=== PATIENT | female | born 1955 | race Asian ===

== ENCOUNTER 2019-02-06 11:04 | Day surgery (SDC) | payer OTHER ==
[2019-01-25 11:01] VITALS: BMI 20.9
--- NOTE | 2019-02-02 08:49 | HP ---
Admitting History and Physical - Primary Care Physician PCP: Darryl Kincaid - Admission Chief Complaint: Right breast cancer History of Present Illness: Patient is a 64 yo female with h/o left breast LCIS (2004), who was noted to have right breast calcifications in the UOQ posteriorly on screening mammo (2018). Patient underwent a stereotactic core bx on 10/24/2018 which was c/w DCIS ER positive HI negative. MRI was c/w known breast cancer. Patient is now presenting for a right breast WE with localization via KEELEY SUSTAINABLE PRODUCTS MARKETING MANAGER. History Source: Patient Limitations to Obtaining History: No Limitations - Past Medical History Cardiovascular: Yes: Hyperlipdemia ...: No Endocrine: Yes: Diabetes Mellitus (borderline) - Advance Directives Advance Directives: Yes: Health Care Proxy - Smoking History Smoking history: Never smoked Have you smoked in the past 12 months: No - Alcohol/Substance Use Hx Alcohol Use: Yes (SOCIALLY) Home Medications - Allergies Allergies/Adverse Reactions: Allergies Allergy/AdvReac Type Severity Reaction Status Date / Time neomycin Allergy Intermediate Rash Verified 01/25/19 10:43 - Home Medications Home Medications: Ambulatory Orders Rosuvastatin Calcium [Crestor] 5 mg PO DAILY 01/25/19 Family Disease History - Family Disease History Family Disease History: CA: Father (prostate cancer), Mother (pancreatic cancer at 84) Other Family History: mat cousin-breast cancer. pat 2nd cousin-colon cancer. mat uncle-esophageal cancer Review of Systems - Review of Systems Constitutional: reports: No Symptoms Cardiovascular: reports: No Symptoms Respiratory: reports: No Symptoms Physical Examination Constitutional: Yes: Well Nourished, Calm Breast(s): Yes: Other (B-cup breasts without suspicious skin changes. No suspicious palpable adenopathy or masses noted bilaterally.) Problem List - Problems (1) Ductal carcinoma in situ (DCIS) of right breast Code(s): D05.11 - INTRADUCTAL CARCINOMA IN SITU OF RIGHT BREAST Assessment/Plan Plan: Right breast WE with KEELEY Finish Inspector localization possible needle localization.
[2019-02-06] MEDS ORDERED: PROPOFOL 20 ML ONE (13:31)
[2019-02-06] MEDS ORDERED: MIDAZOLAM HCL 2 MG/2 ML SINGLE DOSE VIAL ONE (13:32)
[2019-02-06] MEDS ORDERED: LIDOCAINE HCL/PF 2% SDV 5ML VIAL ONE (13:33)
[2019-02-06] MEDS ORDERED: SODIUM CHLORIDE 0.9% P/F 10 ML VIAL IJ ONE (13:34)
[2019-02-06] MEDS ORDERED: ceFAZolin SODIUM 1 GM VIAL ONE (13:34)
[2019-02-06] MEDS ORDERED: DEXAMETHASONE SOD PHOSPHATE 4 MG/1 ML VIAL ONE (13:57)
[2019-02-06] MEDS ORDERED: ONDANSETRON 4 MG/2 ML VIAL ONE (13:57)
[2019-02-06] MEDS ORDERED: BUPIVACAINE HCL 0.25% 125 MG/50 ML VIAL ONE (14:23)
[2019-02-06] MEDS ORDERED: KETOROLAC TROMETHAMINE 30 MG/1 ML VIAL ONE (14:41)
[2019-02-06] MEDS ORDERED: GUM MASTIC/STORAX/MSAL/ALCOHOL 1 DRP DROPSBTL MC ONE (15:08)
[2019-02-06] MEDS ORDERED: PROMETHAZINE HCL 25 MG/1 ML VIAL IVPUSH PRN (15:30)
[2019-02-06] MEDS ORDERED: LACTATED RINGERS SOLUTION 1,000 ML IV SCH (15:30)
[2019-02-06] MEDS ORDERED: ONDANSETRON 4 MG/2 ML VIAL IVPUSH PRN ×2 (15:30→15:33)
[2019-02-06] MEDS ORDERED: KETOROLAC TROMETHAMINE 30 MG/1 ML VIAL IVPUSH ONE ×3 (15:30→16:00)
[2019-02-06] MEDS ORDERED: KETOROLAC TROMETHAMINE 30 MG/1 ML VIAL IVPUSH PRN (15:33)
[2019-02-06] MEDS ORDERED: DEXTROSE 5%-0.45% SALINE 1,000 ML IV SCH (15:45)
[2019-02-06 15:47] VITALS: TEMP 98.1
--- NOTE | 2019-02-06 21:08 | OP ---
DATE OF OPERATION: 02/06/2019 PREOPERATIVE DIAGNOSIS: Right breast ductal carcinoma in situ, upper outer quadrant. POSTOPERATIVE DIAGNOSIS: Right breast ductal carcinoma in situ, upper outer quadrant. PROCEDURE: Right breast partial mastectomy with KEELEY Software Engineer Sales localization and 5 x 4 cm tissue transfer closure. ANESTHESIA: General laryngeal mask airway anesthesia. PRIMARY SURGEON: Suleman Kincaid MD COORDINATOR VOLUNTEER SERVICES: JAIMEE Silva COMPLICATIONS: There were no complications. Briefly, the patient is a 64-year-old, G4, P2, postmenopausal female with [place] descent. She has a family history with her maternal cousin who had breast cancer in her 50s. Her mother had pancreatic cancer at age 84 and her father had prostate cancer. A maternal uncle had esophageal cancer. The patient had a history of a left breast wide excision in 2004 for LCIS and was found to have some new clustered calcifications in the upper outer aspect of the right breast on screening mammography in July 2018. Stereotactic biopsy showed low to intermediate-grade DCIS which was ER positive and NE negative. MRI showed localized disease. She was seen by an outside surgeon, who performed a KEELEY Software Engineer Sales localization of the cancer in the upper outer aspect of the right breast in plans for excision. The patient decided to have surgery with myself and we scheduled for a wide excision with KEELEY Software Engineer Sales localization for February 06, 2019. She was brought in for the surgery through Ambulatory Surgery on February 06 at the [facility], and in the holding area, site verification was made and informed consent was obtained. She was brought in to the operating room and laid on the OR table in a supine position. Venodynes were placed on the lower extremities. She received 1 g of Ancef prior to incision. She underwent general laryngeal mask airway anesthesia. The right breast was sterilely prepped and draped in the usual fashion. Timeout was performed. We used a KEELEY Software Engineer Sales device to localize the reflector within the upper outer aspect of the breast and marked the site. We then performed a wide excision through a periareolar approach around the upper outer aspect around the left periareolar region. An incision was made. Dissection was undertaken around the reflector. We used a KEELEY Software Engineer Sales device to localize the excision and completely excise that tissue around the upper outer aspect of the right breast all the way down to the pectoralis major muscle. The tissue was completely excised and oriented with a long lateral and short superior suture. KEELEY Software Engineer Sales showed removal of the clip and we also did a specimen x-ray showing removal of the KEELEY Software Engineer Sales device as well as the previously placed titanium clip. Hemostasis was achieved and the specimen was sent to Pathology in formalin. Separate margins were then taken on the superior, inferior, medial, lateral, deep, and anterior margins, with a suture marking the biopsy cavity side. Each of these were sent separately in formalin as wide excision margins. A 5 x 4-cm tissue transfer closure was then accomplished by undermining the breast tissue, reapproximating it using 2-0 plain suture. The skin was closed using interrupted 3-0 deep dermal Vicryl suture and a running 4-0 subcuticular Biosyn suture. Mastisol and Steri-Strips were applied over the wound, a compressive dressing placed over this. The patient tolerated the procedure well without difficulty and placed in a surgical bra, and laryngeal mask airway tube was removed. Estimated blood loss was minimal and all sponge and needle counts were correct at the end of the case. The patient will be discharged home the same day once discharge criteria are met. She is to follow up in the office in 1 week for formal wound pathology check. SULEMAN KINCAID M.D. [id number]
[2019-02-09 16:41] VITALS: BP 120/65; PULSE 66
--- NOTE | 2019-02-12 11:35 | PATH ---
Surgical Pathology Report Patient Name: RUFUS DAVIS [facility]. Rec. #: [id number] /Age/Gender: 1955 (Age: 64) / F Account: [id number] Location: [facility] AMBULATORY Taken: 02/06/2019 Received: 02/06/2019 Reported: 02/12/2019 Physicians: Darryl Kincaid M.D. Specimen(s) Received A: RIGHT BREAST WIDE EXCISION B: RIGHT BREAST ANTERIOR MARGIN C: RIGHT BREAST POSTERIOR MARGIN D: RIGHT BREAST MEDIAL MARGIN E: RIGHT BREAST LATERAL MARGIN F: RIGHT BREAST INFERIOR MARGIN G: RIGHT BREAST SUPERIOR MARGIN Clinical History DCIS Final Diagnosis A. BREAST, RIGHT, WIDE EXCISION: BENIGN BREAST PARENCHYMA WITH CHANGES OF PRIOR BIOPSY INCLUDING CHRONIC INFLAMMATION, HEMOSIDERIN LADEN MACROPHAGES DEPOSITION, AND ASSOCIATED GIANT CELL REACTION. NO CARCINOMA IDENTIFIED. B. BREAST, ANTERIOR, MARGIN, EXCISION: BENIGN BREAST PARENCHYMA WITH CHANGES OF PRIOR PROCEDURE. NO CARCINOMA IDENTIFIED. C. BREAST, POSTERIOR, MARGIN, EXCISION: BENIGN FIBROADIPOSE TISSUE AND SKELETAL MUSCLE. D. BREAST, MEDIAL, MARGIN, EXCISION: BENIGN BREAST PARENCHYMA. E. BREAST, LATERAL, MARGIN, EXCISION: BENIGN FIBROADIPOSE TISSUE. F. BREAST, INFERIOR, MARGIN, EXCISION: BENIGN BREAST PARENCHYMA. G. BREAST, RIGHT, SUPERIOR MARGIN, EXCISION: BENIGN FIBROADIPOSE TISSUE. Electronically Signed Raegan Beck M.D. Gross Description A. Received in formalin, labeled "right breast wide excision," is a 5.0 x 4.7 x 2.7 cm. avery-yellow, irregular, portion of fibroadipose tissue. There is no needle localization wire present. There is a short suture marking the superior aspect and a long suture marking the lateral aspect, per the surgeon. There is no skin or nipple present. The specimen is inked as follows: superior and lateral blue; inferior green; medial yellow; anterior red; deep black. The specimen is serially sectioned from lateral to medial. Sectioning reveals a wright metallic biopsy clip surrounded by firm fibrous tissue and a focus of hemorrhage. The firm fibrous tissue abuts the superior margin. This specimen is entirely submitted in 12 cassettes as follows: 1-3-firm fibrous tissue from area of biopsy clip, each with superior, anterior and deep margins; 1-1-dkxnohehen fibrous tissue, each with inferior, anterior and deep margins; 6-lateral margin; 7-medial margin. 8-12- remainder of specimen. Time to formalin fixation: 18 minutes Total formalin fixation time: Approximately 27 hours. B. Received in formalin labeled "anterior margin right breast," is a 1.8 x 1.3 x 0.5 cm portion of fibroadipose tissue with a suture marking the biopsy cavity side, per the surgeon. The new margin is inked blue and the specimen is serially sectioned. The specimen is entirely submitted in 2 cassettes. C. Received in formalin labeled "posterior margin right breast," is a 1.8 x 1.1 x 0.5 cm portion of fibroadipose tissue with a suture marking the biopsy cavity side, per the surgeon. The new margin is inked blue and the specimen is serially sectioned. The specimen is entirely submitted in 2 cassettes. D. Received in formalin labeled "medial margin right breast," is a 1.6 x 0.8 x 0.5 cm portion of fibroadipose tissue with a suture marking the biopsy cavity side, per the surgeon. The new margin is inked blue and the specimen is serially sectioned. The specimen is entirely submitted in 2 cassettes. E. Received in formalin labeled "lateral margin right breast," is a 1.4 x 1.0 x 0.4 cm portion of fibroadipose tissue with a suture marking the biopsy cavity side, per the surgeon. The new margin is inked blue and the specimen is serially sectioned. The specimen is entirely submitted in one cassette. F. Received in formalin labeled "inferior margin right breast," is a 1.6 x 1.3 x 0.5 cm portion of fibroadipose tissue with a suture marking the biopsy cavity side, per the surgeon. The new margin is inked blue and the specimen is serially sectioned. The specimen is entirely submitted in 2 cassettes. G. Received in formalin labeled "superior margin right breast," is a 1.3 x 1.1 x 0.7 cm portion of fibroadipose tissue with a suture marking the biopsy cavity side, per the surgeon. The new margin is inked blue and the specimen is serially sectioned. The specimen is entirely submitted in 2 cassettes. DL02/07/2019 saudi02/07/2019
== END 2019-02-06 17:05 | disposition home or self-care (01) ==
LOC: FASU 11:04 → EDSTATUS 12:30 → FASU 17:05
PROVIDERS: ATTEND Surgery Surgical Oncology
PROC: 0JX60ZB Transfer Chest Subcutaneous Tissue and Fascia with Skin and Subcutaneous Tissue, Open Approach (ICD-10-PCS; 2019-02-06)
PROC: 0HBT0ZZ Excision of Right Breast, Open Approach (ICD-10-PCS; principal; 2019-02-06 14:12)
DX: D05.11 Intraductal carcinoma in situ of right breast (principal); E78.5 Hyperlipidemia, unspecified; R73.03 Prediabetes; Z80.3 Family history of malignant neoplasm of breast
CPT/HCPCS: 77065-TC; 88307-TC; 94760